=== PATIENT | female | born 1985 | race Caucasian/White ===

== ENCOUNTER 2020-09-27 19:25 | Emergency (ER) | payer MEDICARE, MEDICAID ==
[~2020-09-27] VITALS: Ht 149.9 cm; Wt 45.5 kg
[~2020-09-27 19:25] MED LIST: BP MED; CIPRO HC OTIC S10 ML OT; HCTZ 25MG25 MG PO; LABETALOL HCL100 MG PO; LISINOPRIL/HCTZ1 TAB PO; MACROBID 1100 MG/CAP PO; MULTI VITAMINS1 TAB PO; NORCO 325 MG-51 TAB PO; PRINIVIL10 MG PO; PROZAC 20MG20 MG PO; ROPINIROLE HYD0.5 MG PO; ZOFRAN4 M1 PO
[2020-09-27 19:36] VITALS: TEMP 98.8
[2020-09-27 20:05] LABS: BASO # 0.1 (0.0-0.2); BASO % 0.4 % (0.0-2.0); EOS # 0.2 (0.0-0.7); EOS % 1.3 % (0-4.0); GRAN # 10.2 (1.4-6.5); GRAN % 79.4 % (42.2-75.2); LYMPH # 1.5 (1.2-3.4); LYMPH % 11.6 % (20.0-51.0); MEAN CELL VOLUME 95 fl (80.0-100.0); MEAN CORPUSCULAR HGB CONC 34 g/dl (33.0-37.0); MEAN PLATELET VOLUME 10.1 fl (7.4-10.4); MONO # 0.9 (0.1-0.6); PLATELET COUNT 185 K/mm3 (130-400); RED BLOOD COUNT 2.51 M/mm3 (4.10-5.30); REDCELL DISTRIBUTION WIDTH-CV 15.1 % (11.5-14.5)
[2020-09-27 20:08] LABS: HEMATOCRIT 23.9 % (37.0-47.0); HEMOGLOBIN 8.2 g/dl (12.5-16.0); MEAN CORPUSCULAR HEMOGLOBIN 33 pg (27.0-31.0)
[2020-09-27 20:18] LABS: BILIRUBIN,TOTAL 0.7 mg/dL (0.0-1.0); C-REACTIVE PROTEIN 2.4 mg/dL (0.0-0.9); CALCIUM 8.4 mg/dL (8.4-10.2); CREATININE, serum 2.92 (0.52-1.25); POTASSIUM 4.6 mmol/L (3.4-5.0); TOTAL PROTEIN 6.7 gm/dL (6.4-8.2)
[2020-09-27 21:40] LABS: COLLECTION METHOD CLEAN CATCH
[2020-09-27 21:45] LABS: PH 5 (5-8); SQUAMOUS EPITHELIAL 0-2 /hpf; URINE APPEARANCE Clear; URINE BACTERIA None Seen /hpf; URINE BILIRUBIN Negative (NEGATIVE); URINE BLOOD Negative (NEGATIVE); URINE COLOR Yellow; URINE GLUCOSE Negative (NEGATIVE); URINE KETONE Negative (NEGATIVE); URINE LEUKOCYTE ESTERASE Negative (NEGATIVE); URINE NITRATE Negative (NEGATIVE); URINE PROTEIN(semi-quant) 2+ (NEGATIVE); URINE RBC None Seen /hpf; URINE UROBILINOGEN Negative (NEGATIVE)
[2020-09-28 00:50] VITALS: BP 131/70; PULSE 78
== END 2020-09-28 00:50 | disposition short-term general hospital (02) ==
LOC: COL.ER 19:25
PROVIDERS: Emergency Medicine
DX: D73.5 Infarction of spleen (principal); Q79.60 Ehlers-Danlos syndrome, unspecified; I13.10 Hypertensive heart and chronic kidney disease without heart failure, with stage 1 through stage 4 chronic kidney disease, or unspecified chronic kidney disease; F32.9 Major depressive disorder, single episode, unspecified; F41.9 Anxiety disorder, unspecified; Z86.73 Personal history of transient ischemic attack (TIA), and cerebral infarction without residual deficits
CPT/HCPCS: J2405; J3010; J7030